=== PATIENT | female | born 1935 | race Caucasian/White ===

== ENCOUNTER → 2017-08-27 | Outpatient (CLI) | payer MEDICARE, BC ==
--- NOTE | 2017-08-27 17:44 | CONS ---
CONSULTATION DATE OF SERVICE: 08/27/2017 An 82-year-old lady who has been evaluated in the sleep center for possible obstructive sleep apnea-hypopnea syndrome. HISTORY OF PRESENT ILLNESS AND SLEEP-WAKE EVALUATION: Patient's usual sleep schedule from around 11:30 p.m. to 8:00 a.m. No problem with falling asleep. No TV in bedroom. Patient sleeps on the side, cannot sleep on the back because of significant scoliosis. She wakes up from sleep 2 times with nocturia. She opens her mouth during the sleep and developing dry mouth. She wakes up tired, has problems with memory, concentration. [place] Sleepiness Scale, although, in the normal range at 5. PAST MEDICAL HISTORY: Positive for hyperthyroidism, hypertension, hyperlipidemia, back problems, scoliosis. PAST SURGICAL HISTORY: Spinal fusion, about 5 vertebrae, about 30 years ago. MEDICATIONS: 1. Levothyroxine. 2. Amlodipine. 3. Atorvastatin. 4. Aspirin. 5. Calcium supplement. 6. Fish oil. 7. Vitamin D3. SOCIAL HISTORY: Negative for smoking. Alcohol consumption, 1 beer with dinner per night. FAMILY HISTORY: Hypertension, angina, heart problems, hyperlipidemia, arthritis, sinus headaches, snoring, headaches, acid reflux. PHYSICAL EXAMINATION: GENERAL: An 82-year-old lady without distress VITAL SIGNS: BP 133/77, HR 79, RR 14, height 58-3/4 inches, neck 12-1/2 inches in circumference, body mass index 20.1, temp 98.0, oxygen saturation at room air 98%. HEENT: PERRLA, EOMI, evaluation of oropharynx showed tongue protrudes midline, extremely low position of soft palate. Short distance between soft palate and posterior pharyngeal wall. Some restriction of nasal breathing. NECK: Supple, no JVD. Thyroid is not palpable. LUNGS: Clear to percussion and to auscultation. Good air exchange. No wheezing or rhonchi. HEART: S1, S2 regular. No murmurs, gallops, or rubs. ABDOMEN: Soft and nontender. Bowel sounds are present. No organomegaly appreciated. BACK: Scoliosis. EXTREMITIES: No clubbing or cyanosis. Slight deformity to the fingers. GOVERNMENT RELATIONS DIRECTOR: Awake, alert, and oriented X3. Cranial nerves 2 to 7 intact. There is no fasciculation or atrophy. noted. No focal deficits observed. IMPRESSION: 1. Snoring, awakenings from sleep, low position of soft palate, tiredness during the day, problem with memory and concentration, obstructive sleep apnea-hypopnea syndrome. 2. Hypothyroidism. 3. Hypertension. 4. Hyperlipidemia. 5. History of coronary artery disease, status post heart attack. 6. Back problems. 7. Scoliosis. 8. Status post spinal fusion on about 5 vertebrae. 9. Acid reflux. PLAN: 1. Polysomnography for evaluation of patient's breathing during sleep. 2. CPAP/BiPAP titration if sleep study confirms obstructive sleep apnea-hypopnea syndrome. 3. Preferable position during sleep on the side. 4. No driving if patient feels any sleepiness. Patient is aware of civil and criminal liability for unsafe driving. 5. I will see patient for follow up visit to explain results of testing and following plan. Thank you very much for asking me to see this patient in consultation. Sincerely, Gurpreet Christensen MD, PhD, FAASM Diplomat of [employer] [employer] [employer] [place] [facility] [place] MMODL / RASHIN: [id number] /
== END | disposition home or self-care (01) ==
LOC: SLEEP 13:46
PROVIDERS: ATTEND Internal Medicine
DX: G47.33 Obstructive sleep apnea (adult) (pediatric) (principal); E03.9 Hypothyroidism, unspecified; I10 Essential (primary) hypertension; E78.5 Hyperlipidemia, unspecified; M41.9 Scoliosis, unspecified; K21.9 Gastro-esophageal reflux disease without esophagitis; Z98.1 Arthrodesis status; Z86.79 Personal history of other diseases of the circulatory system; Z79.899 Other long term (current) drug therapy; Z79.82 Long term (current) use of aspirin
CPT/HCPCS: 99211